=== PATIENT | male | born 1960 | race Caucasian/White ===

== ENCOUNTER 2016-12-22 15:28 | Inpatient (IN) | payer MEDICARE, OTHER ==
[~2016-12-22] VITALS: Ht 172.7 cm; Wt 85.7 kg
--- NOTE | 2016-12-22 15:28 | NUR ---
DENISE MCFARLAND ACTIVE SEIZURE- PT WITH HX OF SEIZURE. ASSISTED TO BED, IV STARTED ON R HAND, 20 G. ATIVAN 2 MG IV GIVEN PER DR. BRIGHT. NON REBREATHER MASK APPLIED. VITALS REMAIN STABLE. MD AT BEDSIDE. WILL CONTINUE TO MONITOR.
[2016-12-22] MEDS ORDERED: LORAZEPAM INJ 2 MG/ML VIAL IV ONE ×3 (15:30→18:00)
[2016-12-22] MEDS ORDERED: LORAZEPAM INJ 2 MG/ML VIAL ONE ×3 (15:35→17:25)
--- NOTE | 2016-12-22 15:46 | NUR ---
PATIENT TAKEN TO CT VIA STRETCHER.
[2016-12-22] MEDS ORDERED: LABETALOL HCL IV 100MG VIAL ONE (15:57)
--- NOTE | 2016-12-22 15:58 | NUR ---
PATIENT RETURNED FROM CT IN STABLE CONDITION.
[2016-12-22] MEDS ORDERED: LABETALOL HCL IV 100MG VIAL IV ONE ×2 (16:00→17:30)
[2016-12-22] MEDS ORDERED: LEVETIRACETAM (500MG) 1,500 MG in IV NS 0.9% 100 ML IV SCH (16:00)
[2016-12-22 16:25] LABS: BASOPHILS % (AUTO) 0.6 % (0.0-2.0); EOSINOPHILS # (AUTO) 0.1 /CMM (0.0-0.7); HEMATOCRIT 45 % (39-51); HEMOGLOBIN 15.2 g/dL (13.5-17.5); LYMPHOCYTES # (AUTO) 1.6 /CMM (0.8-4.8); LYMPHOCYTES % (AUTO) 31.7 % (20.0-44.0); MEAN CORPUSCULAR HEMOGLOBIN 30 PG (26.0-33.0); MEAN CORPUSCULAR HGB CONC 34 g/dl (31.0-36.0); MEAN CORPUSCULAR VOLUME 88 fL (80-96); MONOCYTES # (AUTO) 0.2 /CMM (0.1-1.30); MONOCYTES % (AUTO) 4.8 % (2.0-12.0); NEUTROPHILS # (AUTO) 3.2 /CMM (1.8-8.9); NEUTROPHILS % (AUTO) 61.9 % (43.0-81.0); PLATELET COUNT (AUTO) 202 /CMM (150-450); RDW COEFFICIENT OF VARIATION 12.6 (11.5-15.0); RED BLOOD CELL COUNT(AUTO) 5.08 MIL/uL (4.5-6.0); WHITE BLOOD COUNT (AUTO) 5.1 K/uL (4.3-11.0)
[2016-12-22 16:34] LABS: CALCIUM, SERUM 7.3 mg/dL (8.5-10.1); POTASSIUM 3.8 mmol/L (3.5-5.1)
[2016-12-22 16:39] LABS: INR 0.99 (0.87-1.13); PROTHROMBIN TIME 10.3 SECS (9.5-12.7)
[2016-12-22 16:40] LABS: ALBUMIN 3.8 g/dL (3.4-5.0); BILIRUBIN,DIRECT 0.1 mg/dL (0.0-0.2); BILIRUBIN,TOTAL 0.3 mg/dL (0.2-1.0); TOTAL PROTEIN, SERUM 6.5 g/dL (6.4-8.2)
--- NOTE | 2016-12-22 17:22 | NUR ---
PATIENT HAVING ANOTHER ACTIVE SEIZURE. ATIVAN 2 MG IV GIVEN PER MD.
--- NOTE | 2016-12-22 17:32 | NUR ---
PATIENT STILL HAVING SEIZURE ACITIVITY. MD AWARE, ORDERED ANOTHER DOSE OF ATIVAN 2MG IV.
--- NOTE | 2016-12-22 17:35 | NUR ---
PAGED DR JESSIE VORA FOR NEURO CONSULT
--- NOTE | 2016-12-22 17:58 | NUR ---
PER DR. GODFREY, [facility].
[2016-12-22] MEDS ORDERED: NS 0.9% IV ONE (18:00)
[2016-12-22] MEDS ORDERED: PHENYTOIN SODIUM IV ONE (18:00)
--- NOTE | 2016-12-22 19:15 | NUR ---
WAFER CUTTER: PT RECEIVED FROM ER VIA YOLA FOR DX OF SEIZURE. EYES OPEN WHEN TOUCHED BUT NON-VERBAL AT THIS TIME. ON 3L 02 VIA NC WT NO ACUTE DISTRESS. SR ON ASSOCIATE PROPERTY MANAGER. HAD MODERATE AMT. OF SOFT STOOLS. [facility] CARE RENDERED. SAFETY AND SEIZURE PRECAUTION NOTED. WILL CONTINUE TO MONITOR.
--- NOTE | 2016-12-22 19:20 | NUR ---
PATIENT TRANSPORTED TO [facility] VIA ACLS PROTOCOL FOR ADMISSION. RNRAMIRO TO PROVIDE KENDAL.
[2016-12-22] MEDS ORDERED: ACETAMINOPHEN 325 MG TABLET PO PRN (19:30)
[2016-12-22] MEDS ORDERED: MAGNESIUM HYDROXIDE 30 ML UDC PO PRN (19:30)
[2016-12-22] MEDS ORDERED: HYDROCODONE/APAP 5/325MG 1 EACH TABLET PO PRN (19:30)
[2016-12-22] MEDS ORDERED: ONDANSETRON HCL/PF 4 MG/2 ML VIAL IVP PRN (19:30)
[2016-12-22] MEDS ORDERED: MAG HYDROX/AL HYDROX/SIMETH 30 ML UDC PO PRN (19:30)
[2016-12-22] MEDS ORDERED: Z GUARD REMEDY 2 OZ OINT TP PRN (19:30)
[2016-12-22 19:37] VITALS: BP 167/108
[2016-12-22 19:51] VITALS: BP 171/100
[2016-12-22 20:00] VITALS: BP_SYST 162; BP_SYST 167; BP_DIAS 108; BP_DIAS 97
[2016-12-22] MEDS: PANTOPRAZOLE 40 MG VIAL IV SCH (20:14)
[2016-12-22] MEDS: IV NS 0.9% 1,000 ML IV PRN (20:15)
[2016-12-22] MEDS: LORAZEPAM INJ 2 MG/ML VIAL IV PRN (20:26)
[2016-12-22 21:00] VITALS: BP 151/93
--- NOTE | 2016-12-22 21:15 | NUR ---
SIDING INSTALLER: NOTIFIED RAHUL JOHNSON THAT PT HAS BEEN UNCOOPERATIVE, COMBATIVE AND TRYING TO GET OUT OF BED. ATIVAN GIVEN AT 2025 WT LITTLE EFFECT WHEN REASSESSED. NO SEIZURE MEDICATION ON ADMISSION ORDERS. FULFILLMENT SPECIALIST WT ORDERS FOR ATIVAN FOR SZ PRN, 1:[address] ON BILAT[address] SOFT WRIST RESTRAINTS. NOTED AND CARRIED OUT.
[2016-12-22] MEDS ORDERED: LORAZEPAM INJ 2 MG/ML VIAL IV PRN (21:30)
[2016-12-22 22:00] VITALS: BP 123/97
[2016-12-22] MEDS ORDERED: ZOLPIDEM TARTRATE 5 MG TABLET PO PRN (22:00)
--- NOTE | 2016-12-22 22:12 | NUR ---
DIRECTOR AMBULATORY: RECEIVED HALDOL PRN IM X 1 FROM RAHUL JOHNSON D/T INTERMITTENT COMBATIVENESS. PT IS QUIET AT THIS TIME AND WILL ADMINISTER NEEDED.
[2016-12-22] MEDS ORDERED: HALOPERIDOL LACTATE INJ 5 MG/ML VIAL IM ONE (22:30)
[2016-12-22] MEDS ORDERED: HALOPERIDOL LACTATE INJ 5 MG/ML VIAL IM PRN (22:30)
[2016-12-22] MEDS ORDERED: HALOPERIDOL LACTATE INJ 5 MG/ML VIAL ONE (22:50)
[2016-12-22 22:56] LABS: ABG BASE EXCESS -2.9 mmol/L; ABG OXYGEN SATURATION 96.5 % (92.0-98.5); ABG PH 7.383 (7.350-7.450); ABG PO2 84.4 mmHg (75.0-100.0); COHb 0.3 % (0.5-1.5); MetHb 0.5 % (0.0-1.5); O2Hb 95.7 % (94.0-97.0); SITE, ABG Right Brachial; VENT MODE, BG ROOM AIR
[2016-12-22 23:00] VITALS: BP 131/72
--- NOTE | 2016-12-22 23:07 | NUR ---
ENGINE HEAD REPAIRER: HALDOL GIVEN VIA IM ON LEFT DELTOID SITE D/T EPISODES OF TRYING TO GET OUT OF BED, SCREAMING AND COMBATIVENESS. 1:1 SITTER AT BEDSIDE. SAFETY/SEIZURE PRECAUTION NOTED AT ALL TIMES.
[2016-12-23] VITALS (42 sets, daily range): BP systolic 110–174; BP diastolic 59–115
--- NOTE | 2016-12-23 00:15 | NUR ---
SOCIAL AND POLITICAL STUDIES PROFESSOR: REASSESSMENT DONE AFTER HALDOL ADMINISTRATION WT MINIMAL EFFECT. PT GOT QUIET FOR A FEW MINUTES THEN STARTED TO GET RESTLESS AGAIN. WILL CONTINUE TO MONITOR.
[2016-12-23] MEDS: LORAZEPAM INJ 2 MG/ML VIAL IV PRN ×8 (00:20→21:05)
--- NOTE | 2016-12-23 04:30 | NUR ---
MEDICAL SCIENTIST: NO SEIZURE EPISODE SINCE START OF SHIFT. PT IS QUIET WT MINIMAL RESTLESSNESS. BILAT. SOFT WRIST RESTRAINTS IN PLACE WT GOOD CIRCULATION AND NO SKIN BREAKDOWN.
[2016-12-23 04:49] LABS: BASOPHILS % (AUTO) 0.3 % (0.0-2.0); HEMATOCRIT 46 % (39-51); HEMOGLOBIN 15.7 g/dL (13.5-17.5); LYMPHOCYTES # (AUTO) 1.2 /CMM (0.8-4.8); LYMPHOCYTES % (AUTO) 9.2 % (20.0-44.0); MEAN CORPUSCULAR HEMOGLOBIN 30 PG (26.0-33.0); MEAN CORPUSCULAR HGB CONC 34 g/dl (31.0-36.0); MEAN CORPUSCULAR VOLUME 87 fL (80-96); MONOCYTES # (AUTO) 0.5 /CMM (0.1-1.30); MONOCYTES % (AUTO) 4.1 % (2.0-12.0); NEUTROPHILS % (AUTO) 86.4 % (43.0-81.0); PLATELET COUNT (AUTO) 222 /CMM (150-450); RDW COEFFICIENT OF VARIATION 12.8 (11.5-15.0); RED BLOOD CELL COUNT(AUTO) 5.25 MIL/uL (4.5-6.0); WHITE BLOOD COUNT (AUTO) 12.7 K/uL (4.3-11.0)
[2016-12-23 05:03] LABS: ALBUMIN 4.1 g/dL (3.4-5.0); BILIRUBIN,TOTAL 0.5 mg/dL (0.2-1.0); CALCIUM, SERUM 8.5 mg/dL (8.5-10.1); CREATININE 1.1 mg/dL (0.6-1.3); MAGNESIUM 1.5 mg/dL (1.8-2.4); PHOSPHORUS 1.5 mg/dL (2.5-4.9); POTASSIUM 3.8 mmol/L (3.5-5.1)
[2016-12-23 05:17] LABS: THYROID STIMULATING HORMONE 1.324 uIU/mL (0.358-3.74)
--- NOTE | 2016-12-23 06:15 | NUR ---
COVERER: REASSESSED AFTER GIVEN ATIVAN FOR RESTLESSNESS WT NONE NOTED AT THIS TIME. NO SEIZURE NOTED THROUGHOUT THE SHIFT.
--- NOTE | 2016-12-23 07:15 | NUR ---
RN OPENING NOTE RECV'D REPORT FROM "RAMIRO" DEBBY HAWKINS. 1:1 PT. ADMIT LAST NIGHT FOR SEIZURE H/O SEIZURE. SLEEPING AND DROWSY. OPENS EYES. GIVEN ATIVAN AT 0539 AND HALDOL OVERNIGHT. NEURO CONSULT DONE. KEPPRA AND DILANTIN STOPPED LAST NIGHT 1829. ATIVAN PRN AVAILABLE. NO SEIZURE ACITIVITY SINCE LEAVING ER. BILAT SOFT WRIST RESTRAINTS FOR SAFETY. PT ATTEMPTS TO GET OOB CONFUSED. RA 98% NON LABORED RESP. SR TELE 90'S. 130/78. 0/10. LAC 20G INFUSING NS @75ML/HR. CONDOM CATH. BM WATERY OVERNIGHT. NO SKIN BREAKDOWN. WILL CONT TO MONITOR CLOSELY. BED IN LOW LOCKED POSITION. SIDE RAILS UP X 3.
[2016-12-23] MEDS: PANTOPRAZOLE 40 MG VIAL IV SCH (08:06)
--- NOTE | 2016-12-23 08:48 | NUR ---
RN NOTES SPOKE W/ DR. GODFREY REGARDING SEIZURE MEDS DILATIN LEVEL 10.6 IN ER, SO HE IS GOING TO SPEAK W/ DR. SINGH ABOUT RESTARTING DIALNTIN. REVIEWED NEED FOR FLU SHOT, LOVENOX OR LEG SQUEEZERS AND HE IS GOING TO ORDER LOVENOX.
--- NOTE | 2016-12-23 09:30 | NUR ---
URINE DRUG SCREEN CONDOM CATH COLLECTED STAT FOR LAB.
[2016-12-23] MEDS: IV NS 0.9% 1,000 ML IV PRN (09:58)
[2016-12-23] MEDS: Magnesium 1GM/D5W 100ML PREMIX 100 ML IV SCH ×2 (11:47→12:49)
[2016-12-23] MEDS: ENOXAPARIN SODIUM 40 MG/0.4 ML DISP.SYRIN SQ SCH (11:48)
--- NOTE | 2016-12-23 12:40 | NUR ---
RN NOTES PAGED DR. VORA REGARDING DILANTIN >32 (10-20). PT SLEEP AND AROUSABLE. AWAITING CALLBACK. SOON CN AWARE OF RESULTS.
--- NOTE | 2016-12-23 13:11 | NUR ---
RN NOTES DR. VORA CALL BACK ORDERED DILANTIN REPEAT LEVEL IN AM.
[2016-12-23] MEDS: hydrALAZINE HCL IV 20 MG VIAL IV PRN ×2 (15:14→21:04)
--- NOTE | 2016-12-23 15:36 | NUR ---
RN NOTES HTN CALLED DR. GODFREY AND SURESHV'D HYDRALAZINE IV 20 MG ORDER GIVEN FOR SBP >140. SBP 170'S NOW 127 FOLLOWING DOSE.
[2016-12-23] MEDS ORDERED: Sodium Phosphate 15 MMOL in IV D5W 250 ML IV ONE (16:00)
--- NOTE | 2016-12-23 18:52 | NUR ---
KELLY RN NOTE: NO ACUTE CHANGES DURING SHIFT. PATIENT A&OX1, LETHARGIC WITH CONFUSION. DENIES PAIN. SR TELE IN THE 90S. B/L SOFT WRIST RESTRAINTS IN PLACE W/GOOD CIRCULATION AND NO SKIN BREAKDOWN NOTED. LAC 20G INFUSING SODIUM PHOSPHATE. CONDOM CATHETER DRAINING TO GRAVITY WITH YELLOW URINE. SEIZURE PRECAUTIONS IN PLACE. 1:1 STATUS FOR SAFETY. ORDERS CARRIED OUT. BED LOW, LOCKED WITH SIDE RAILS UP. WILL ENDORSE TO DIE CASTING MACHINE SETTER NURSE FOR KENDAL.
--- NOTE | 2016-12-23 20:39 | NUR ---
received pt from day shift, lethargic, follows simple commands, restless, confused, trying to get output of bed, kicking, combative at times, on BL wrist restraints, sitter at the bedside, SR, RA, sat well, NPO, diaper on, v/s stable, no pain, pt turned and repositioned.
[2016-12-23] MEDS ORDERED: HALOPERIDOL LACTATE INJ 5 MG/ML VIAL ONE (23:26)
--- NOTE | 2016-12-23 23:27 | NUR ---
pt is combative, kicking, screaming, getting out of bed. MANAGER HOME IMPROVEMENT cotton cleaner called, one time order for 5mg Haldol received and carried out.
[2016-12-23] MEDS ORDERED: HALOPERIDOL LACTATE INJ 5 MG/ML VIAL IM ONE (23:30)
[2016-12-24] VITALS (43 sets, daily range): BP systolic 90–211; BP diastolic 40–114
--- NOTE | 2016-12-24 00:17 | NUR ---
pt is resting in the bed, still restless, combative at times, SR, ST, sitter at the bedside, v/s stable, no pain, pt turned and repositioned q2hrs.
[2016-12-24] MEDS: LORAZEPAM INJ 2 MG/ML VIAL IV PRN (01:34)
[2016-12-24] MEDS: IV NS 0.9% 1,000 ML IV PRN ×2 (03:45→23:38)
--- NOTE | 2016-12-24 04:10 | NUR ---
pt is resting in the bed, v/s stable, no pain, pt cleaned, changed and repositioned q2hrs.
[2016-12-24 05:36] LABS: CALCIUM, SERUM 8.5 mg/dL (8.5-10.1); CREATININE 0.8 mg/dL (0.6-1.3); PHOSPHORUS 1.9 mg/dL (2.5-4.9); POTASSIUM 3.3 mmol/L (3.5-5.1)
--- NOTE | 2016-12-24 07:10 | NUR ---
RN INITIAL NOTES: REC'D PT ASLEEP ON BED, NOT IN ANY DISTRESS, LETHARGIC, A/O X1 W/ CONFUSION. ON ROOM AIR, NO SOB NOTED. ON TELEMONITOR, SR/ST. HAS L AC G20 PL PATENT & INTACT W/ NO S/SX OF INFECTION/ INFILTRATION NOTED W/ NS X 75 CC/HR INFUSING WELL. NO SEIZURE NOTED AT THIS TIME. ON B SOFT WRIST RESTRAINTS PT TRYING TO PULL OUT LINES, BECOMING RESTLESS. PT ON NPO ORDERED. HAS 1:1 SITTER AT BEDSIDE. PROVIDED COMFORT & SAFETY MEASURES. CALL LIGHT W/IN REACH. HAS PADDED SIDERAILS. BED KEPT LOW & IN LOCKED POS. WILL CONTINUE TO MONITOR AND ATTEND PT NEEDS.
[2016-12-24] MEDS: hydrALAZINE HCL IV 20 MG VIAL IV PRN ×3 (08:27→23:41)
[2016-12-24] MEDS: PANTOPRAZOLE 40 MG VIAL IV SCH (08:27)
[2016-12-24] MEDS: ENOXAPARIN SODIUM 40 MG/0.4 ML DISP.SYRIN SQ SCH (08:32)
--- NOTE | 2016-12-24 12:15 | NUR ---
RN NOTES: PT SEEN & EXAMINED BY DR. GODFREY W/ ORDERS MADE & CARRIED OUT. PT WAS REFERRED DUE TO UNCONTROLLED BP SBP>150'S AND PT C/O SEVERE HEADACHE. MD ORDERED TO START PT ON CLONIDINE 0.2 MG PATCH Q7 DAYS. MD ALSO MADE AWARE THAT ST INGRID DONE. PER ST TO KEEP PT NPO FOR NOW DUE TO ALTERED MENTAL STATUS. MD ORDERED TO INCREASE IVF TO 125 CC/HR.
[2016-12-24] MEDS ORDERED: CLONIDINE HCL 0.2MG/24H PTWK 1 EA PATCH TD SCH (12:30)
[2016-12-24] MEDS ORDERED: MORPHINE SULFATE INJ 4 MG/ML DISP.SYRIN IM PRN (12:30)
[2016-12-24] MEDS: POTASSIUM CL. PREMIX PERIPHER. 50 ML IV SCH ×2 (12:46→13:53)
--- NOTE | 2016-12-24 16:30 | NUR ---
RN NOTES: PT UNCONSCIOUSLY PULLED OUT IV LINE ON L AC G20. TRIED REINSERTED X3 BUT FAILED. DIRECTOR OF PUBLIC RELATIONS TRIED X2 BUT STILL FAILED. NURSING FURNACE MECHANIC MADE AWARE FOR MIDLINE INSERTION. PT IS HARDSTICK.
--- NOTE | 2016-12-24 17:54 | NUR ---
Spoke with Parker, patient recently relocated to [place] from [facility]. He lives with his in [place], has no pcp yet and is working on finding and pcp. Prior to admission, patient was ambulatory and independent with adl's. Has no D,E or homehealth reported. will provide ride once patient is discharge. Addendum: 12/24/16 at 1755 by GERA GARZA RN Amended: Links added.
--- NOTE | 2016-12-24 19:00 | NUR ---
RN CLOSING NOTES: NO ACUTE CHANGES NOTED W/IN SHIFT. PT IS MORE ALERT, ORIENTED X1 STILL W/ CONFUSION. PT TOLERATED ROOM AIR, NO SOB NOTED. ON TELEMONITOR, STILL SR/ST. RFA G24 PL KEPT PATENT & INTACT W/ NO S/SX OF INFECTION/ INFILTRATION NOTED W/ NS X 125 CC/HR INFUSING WELL. NO SEIZURE NOTED W/IN SHIFT. PT KEPT ON NPO DUE TO CURRENT MENTAL STATUS. STILL HAS 1:1 SITTER AT BEDSIDE. KEPT WELL RESTED. NEEDS ATTENDED. CALL LIGHT W/IN REACH. STILL HAS PADDED SIDERAILS FOR SEIZURE PRECAUTION. BED KEPT LOW & IN LOCKED POS. PT FOR MIDLINE INSERTION (PT IS HARDSTICK). NURSE SUP HAYLEY MADE AWARE, SHE SAID ITS GOING TO BE DR. HALE BUT PER DR. HALE, IT'S ROME WHO WILL DO THE MIDLINE. HAYLEY INFORMED. ENDORSED TO PM RN FOR KENDAL AND TO INFUSE K PHOSPHATASE ONCE MIDLINE IS INSERTED.
--- NOTE | 2016-12-24 19:31 | NUR ---
RN:ICU OF: PT RECEIVED IN BED, SLEEPING. PT AROUSABLE TO TOUCH AND VOICE. PT ABLE TO MAKE NEEDS KNOWN. PT HAS ONLY 1 IV ACCESS AT THIS TIME WITH NS AT 125ML/HR RUNNING. IV IS FLUSHING BUT HE REQUIRES A LARGE IV FOR THE PHOS REPLACEMENT ORDERED. PER DAYSHIFT PICC NURSE WILL COME TO PLACE MIDLINE. PT EDUCATED REGARDING POC. NO SEIZURE ACTIVITY NOTED. ASPIRATION, FALL AND SZ PRECAUTIONS IN PLACE. SITTER AT THE BEDSIDE TO ENSURE PT SAFETY HE WAS PREVIOUSLY RESTLESS AND REMOVING IV LINES DURING THE PREVIOUS SHIFT. BP REMAINS ELEVATED 180'S. MD AWARE. WILL ADMIN HYDRALAZINE WHEN NEXT SCHEDULED. NO ACUTE DISTRESS NOTED. WILL CONTINUE TO MONITOR CLOSELY.
[2016-12-24] MEDS: POTASSIUM PHOSPHATE MM 7.5 MMOL in IV D5W 100 ML IV SCH ×2 (20:25→23:27)
[2016-12-24] MEDS ORDERED: LABETALOL 20 MG/4 ML VIAL IV ONE (20:30)
--- NOTE | 2016-12-24 20:51 | NUR ---
RN:ICU OF: PT BP REMAINS ELEVATED 200'S-160'S WITH ELEVATED DIASTOLIC >100. SPOKE WITH CERTIFIED FLEX ENDOSCOPE REPROCESSOR ROAD ENGINEER REGARDING INCREASED BP. PER CERTIFIED FLEX ENDOSCOPE REPROCESSOR CONTINUE IVF PREVIOUSLY ORDERED AND GIVE A ONE TIME DOSE OF LABETALOL. PHOS REPLACEMENT RUNNING PER MD ORDERS. RIGHT UPPER ARM MIDLINE INSERTED. PT TOLERATED PROCEDURE. PT REMAINS CONFUSED. ATTEMPTED TO HIDE ALL LINES TO PREVENT PT FROM REMOVING ESSENTIAL IV LINES.
[2016-12-25] VITALS (21 sets, daily range): BP systolic 111–180; BP diastolic 63–107
--- NOTE | 2016-12-25 00:46 | NUR ---
RN: ICU OF: PT RESTING IN BED, WITH OCCASIONAL PERIODS OF CONFUSION AND ATTEMPTING TO GET OUT OF BED. SITTER HAS TO FREQUENTLY REORIENT PT. PT UNAWARE HE IS HOSPITAL DESPITE FREQUENT REORIENTATION. PT BP MORE CONTROLLED FOLLOWING HYDRALAZINE PRN DOSE ADMIN. NO ACUTE DISTRESS NOTED.
--- NOTE | 2016-12-25 03:55 | NUR ---
RN:ICU OF: PT WAKES UP PERIODICALLY AND ASKS QUESTIONS ABOUT WHAT HAPPENED TO HIM. PT INFORMED THAT HE HAD A SEIZURE AND THAT HE IS IN THE HOSPITAL. PT BEGINS TALKING BUT DOES NOT MAKE ANY SENSE. PT TALKING ABOUT HIS PHONE BUT ACCORDING TO THE BELONGINGS LIST, PT DID NOT HAVE CELL PHONE. SITTER AT THE BEDSIDE AND PROVIDES FREQUENT REORIENTATION.
[2016-12-25 05:12] LABS: CALCIUM, SERUM 8.2 mg/dL (8.5-10.1); CREATININE 0.8 mg/dL (0.6-1.3)
[2016-12-25 05:25] LABS: POTASSIUM 3.4 mmol/L (3.5-5.1)
[2016-12-25] MEDS: hydrALAZINE HCL IV 20 MG VIAL IV PRN ×2 (06:37→22:08)
[2016-12-25] MEDS: IV NS 0.9% 1,000 ML IV PRN ×3 (06:42→23:44)
--- NOTE | 2016-12-25 06:45 | NUR ---
RN:ICU OF: PT APPEARS TO BE MORE COHERENT, THOUGH HE STILL REMAINS CONFUSED. SECOND DOSE OF HYDRALAZINE GIVE FOR SBP GREATER THAN 140. PT BP 180. NO SEIZURE ACTIVITY NOTED DURING THE SHIFT. DILANTIN LEVEL TRENDING DOWN. WILL ENDORSE TO ONCOMING SHIFT.
--- NOTE | 2016-12-25 08:00 | NUR ---
ICU/RN AM SHIFT INITIAL NOTES RECEIVED PT AWAKE SITTING IN BED, SITTER AT BEDSIDE. PT IS ALERT BUT CONFUSED, SLOW IN RESPONDING, COHERENT. NO INCIDENT OF SEIZURE AT THIS TIME, PT DENIES ANY SYMPTOMS OR PAIN. ON ROOM AIR SATURATING @ 96%, ON TELE MONITORING WITH SINUS TACHY, HR 108. WITH ON GOING IV INFUSION OF NS @ 125CC/HR, MIDLINE PATENT WITH NO S/S OF INFECTION. BED RAILS PADDED FOR SEIZURE PRECAUTION. PT ON NPO STATUS AT THIS TIME. SCHEDULED AM MEDS TO BE GIVEN. CL WITHIN REACHED AND SAFETY MAINTAINED. ON GOING MONITORING.
[2016-12-25] MEDS: ENOXAPARIN SODIUM 40 MG/0.4 ML DISP.SYRIN SQ SCH (08:58)
[2016-12-25] MEDS: PANTOPRAZOLE 40 MG VIAL IV SCH (08:59)
--- NOTE | 2016-12-25 10:15 | NUR ---
TELE1/SOURCING INTERN OF CARE REPORT GIVEN TO NURSE SCHUYLER TO CONTINUE CARE.
--- NOTE | 2016-12-25 10:15 | NUR ---
received pt awake able to ambulate to restroom,will conyinue to ff. up.
--- NOTE | 2016-12-25 11:50 | NUR ---
SEEN AND EVALUATED BY DR. GARG PT. STILL CONFUSED MADE AWARE OF LABS ,OK TO RESUMED PO FOOD.
[2016-12-25] MEDS: POTASSIUM CL. PREMIX PERIPHER. 50 ML IV SCH ×2 (14:09→14:52)
--- NOTE | 2016-12-25 14:49 | NUR ---
PATIENT OOB AMBULATORY TO RESTROOM WITH SITTER CALM,STILL CONFUSED AT TIMES.
--- NOTE | 2016-12-25 15:05 | NUR ---
k of 3.4 ,replaced with 20meq kcl ivpb as ordered.
--- NOTE | 2016-12-25 18:51 | NUR ---
pt. calm and quiet,will endorsed to night rn for continuity of care.
--- NOTE | 2016-12-25 20:00 | NUR ---
RN NOTES PATIENT IN BED AWAKE, TALKING NOTED WITH CONFUSION AND EPISODES OF FORGETFULNESS. AMBULATORY. NO RESPIRATORY DISTRESS OR SHORTNESS OF BREATH. BREATHING EVEN AND UNLABORED. ABDOMEN SOFT AND NON TENDER. CONTINENT OF BOWEL AND BLADDER FUNCTION. IJEOMA MIDLINE PATENT AND INTACT. ON NS @125ML/HR TOLERATING WELL. KEPT CLEAN AND DRY. WILL CONTINUE TO MONITOR.
--- NOTE | 2016-12-25 22:30 | NUR ---
RN NOTES NOTED PATIENT'S BP TO BE 105/123 WITH HEART RATE OF 115. HYDRALAZINE 20MG (1ML) IV PUSH. COMPALINING OF HEADACHE, NORCO 6/325 GIVEN WITH HELP. AFTER 15 MINUTES BP WENT DOWN TO 179/102 AND HEART RATE 102. CONTINUOUS MONITORING DONE. BP WENT DOWN TO 169/101 HR 104 AFTER AN HOUR.
[2016-12-26] VITALS: BP 160/90
[2016-12-26] MEDS: LORAZEPAM INJ 2 MG/ML VIAL IV PRN (00:01)
--- NOTE | 2016-12-26 00:10 | NUR ---
RN NOTES PATIENT WAS VERY ANXIOUS OF THIS TIME, MOVING AROUND AND CONTINUOUSLY MOVING, UNCOOPERATIVE. ADMINISTERED 2MG/1ML ATIVAN IVP WITH HELP. NOTED PATIENT TO WENT TO BED AND CLOSED HIS EYES. WILL CONTINUE TO MONITOR.
[2016-12-26 04:00] VITALS: BP 186/129
[2016-12-26] MEDS: hydrALAZINE HCL IV 20 MG VIAL IV PRN (05:18)
--- NOTE | 2016-12-26 06:45 | NUR ---
RN CLOSING NOTES PATIENT IN BED WITH RESPIRATORY DISTRESS NOTED. BREATHING EVEN UNLABORED. NORCO 5/325 GIVEN AT 2200 FOR COMPLAINT OF HEADACHE. HYDRALAZINE 20MG IV PUSH ADMINISTERED AT 2200 AND 0500 FOR ELEVATED BLOOD PRESSURE. ATIVAN 2MG GIVEN FOR ANXIETY WITH RESTLESSNESS. WILL ENDORSE TO AM SHIFT FOR CONTINUITY OF CARE.
[2016-12-26] MEDS: IV NS 0.9% 1,000 ML IV PRN (07:15)
[2016-12-26 07:34] LABS: BASOPHILS % (AUTO) 0.2 % (0.0-2.0); EOSINOPHILS # (AUTO) 0.1 /CMM (0.0-0.7); EOSINOPHILS % (AUTO) 1.5 % (0.0-6.0); HEMATOCRIT 45 % (39-51); HEMOGLOBIN 15.4 g/dL (13.5-17.5); LYMPHOCYTES # (AUTO) 1.4 /CMM (0.8-4.8); LYMPHOCYTES % (AUTO) 16.1 % (20.0-44.0); MEAN CORPUSCULAR HEMOGLOBIN 30 PG (26.0-33.0); MEAN CORPUSCULAR HGB CONC 34 g/dl (31.0-36.0); MEAN CORPUSCULAR VOLUME 89 fL (80-96); MONOCYTES # (AUTO) 0.7 /CMM (0.1-1.30); MONOCYTES % (AUTO) 7.9 % (2.0-12.0); NEUTROPHILS # (AUTO) 6.7 /CMM (1.8-8.9); NEUTROPHILS % (AUTO) 74.3 % (43.0-81.0); PLATELET COUNT (AUTO) 187 /CMM (150-450); RDW COEFFICIENT OF VARIATION 13.5 (11.5-15.0); RED BLOOD CELL COUNT(AUTO) 5.06 MIL/uL (4.5-6.0)
[2016-12-26 07:49] LABS: CALCIUM, SERUM 8.3 mg/dL (8.5-10.1); CREATININE 0.7 mg/dL (0.6-1.3); POTASSIUM 3.5 mmol/L (3.5-5.1)
[2016-12-26 07:53] LABS: PHENYTOIN (DILANTIN) 17.4 ug/ml (10.0-20.0)
--- NOTE | 2016-12-26 08:27 | NUR ---
PATIENT RECEIVED AWAKE ALERT,VERBALIZED DIDNOT SLEPT GOOD LAST NIGHT,SEEN AND EVALUATED BY DR. GARG UPDATED WITH PT. LABS AND BP WITH NEW ORDERS LEFT.
[2016-12-26] MEDS: PANTOPRAZOLE 40 MG VIAL IV SCH (08:34)
[2016-12-26] MEDS: ENOXAPARIN SODIUM 40 MG/0.4 ML DISP.SYRIN SQ SCH (08:35)
[2016-12-26 08:42] VITALS: BP 166/108
[2016-12-26] MEDS ORDERED: LEVE500T9 PO (08:55)
[2016-12-26] MEDS ORDERED: AMLO5TAB2 PO (08:55)
[2016-12-26] MEDS ORDERED: CLONIDINE HCL 0.1 MG TABLET PO ONE (09:00)
[2016-12-26] MEDS ORDERED: LEVETIRACETAM (250 MG) 250 MG TABLET PO SCH (09:00)
[2016-12-26] MEDS ORDERED: AMLODIPINE BESYLATE 5 MG TABLET PO SCH (09:00)
--- NOTE | 2016-12-26 10:13 | NUR ---
PATIENT DISCHARGE INSTRUCTION GIVEN,IV D/C PRESCRIPTION CALL IN TO [facility] AT [phone] SPOKE WITH QAMAR PHARMACIST.AWAITS GIRLFRIEND TO FILM SORTER PATIENT.
[2016-12-26 10:26] VITALS: BP 150/88
--- NOTE | 2016-12-26 11:56 | NUR ---
PATIENT AMBULATORY,DENEIS ANY DISCOMFORT.
[2016-12-26 12:00] VITALS: BP 140/88
--- NOTE | 2016-12-26 12:14 | NUR ---
DISCHARGE AMBULATORY ACCOMPANIED BY GIRLFRIEND STELLA.
== END 2016-12-26 12:29 | disposition home or self-care (01) | DRG 100 ==
LOC: ER 15:29 → ICUOV 19:28 → TELE1 12-25 09:18
PROVIDERS: ADMIT Internal Medicine; ATTEND Internal Medicine
PROC: 05H533Z Insertion of Infusion Device into Right Subclavian Vein, Percutaneous Approach (ICD-10-PCS; principal; 2016-12-24)
DX: G40.909 Epilepsy, unspecified, not intractable, without status epilepticus (principal); J96.01 Acute respiratory failure with hypoxia; Z87.820 Personal history of traumatic brain injury; E83.42 Hypomagnesemia; E87.6 Hypokalemia; I10 Essential (primary) hypertension; R78.89 Finding of other specified substances, not normally found in blood
CPT/HCPCS: 36415; 36569; 36600; 70450-TC; 71010-TC; 80048-TC; 80053-TC; 80061-TC; 80076-TC; 80185-TC; 80305; 82803-TC; 83735-TC; 84100-TC; 84443-TC; 84484-TC; 85025-TC; 85730-TC; 87081-TC; 92611-TC; 93307-TC; A4349; A4606; A9563; C9113; G0480; J0360; J1165; J1630; J1650; J1953; J2060; J2270; J3475; J3480; J3490; J7030; J7060; Z7610